=== PATIENT | male | born 1950 | race Caucasian/White ===

== ENCOUNTER 2024-10-07 08:04 | Observation (INO) | payer MEDICARE, OTHER ==
[2024-10-07 08:50] LABS: Basophils # (A) 0.03 10*3/uL (0.00-0.10); Basophils % (A) 0.2 %; HCT 42.5 % (39.6-50.0); HGB 14.8 g/dL (13.0-17.0); Lymphocytes % (A) 4.7 %; MCH 32.5 pg (27.0-32.0); MCHC 34.8 g/dL (32.0-37.0); MCV 93.4 fL (80.0-97.0); Mean Platelet Volume 12.2 fL (9.5-12.2); Monocytes # (A) 1.07 10*3/uL (0.20-1.00); Monocytes % (A) 8.4 %; Neutrophils # (A) 10.94 10*3/uL (1.80-7.70); Neutrophils % (A) 86.4 %; Platelet Count 151 10*3/uL (140-440); RBC 4.55 10*6/uL (4.40-5.60); RDW 12.3 % (11.5-14.5); WBC 12.68 10*3/uL (4.50-10.00)
[2024-10-07 09:06] LABS: ALT 35 U/L (4-49); African American GFR (CKD) >90 (>60 ml/min/1.73 sqM); Albumin 4.1 g/dL (3.5-5.0); Anion Gap 10 mmol/L; Blood Urea Nitrogen 22 mg/dL (9-20); Calcium 9.3 mg/dL (8.4-10.2); Carbon Dioxide 21 mmol/L (22-30); Chloride 107 mmol/L (98-107); Glucose 113 mg/dL (74-99); Non-African American GFR(CKD) 85 (>60 ml/min/1.73 sqM); Sodium 138 mmol/L (137-145); Total Bilirubin 1.3 mg/dL (0.2-1.3); Total Protein 7.2 g/dL (6.3-8.2)
[2024-10-07 09:13] LABS: NT-Pro-B-Type Natriuretic Pept 93 pg/mL
--- NOTE | 2024-10-07 09:28 | XR ---
EXAMINATION TYPE: XR chest 2V DATE OF EXAM: 10/07/2024 9:09 AM COMPARISON: None CLINICAL INDICATION: Male, 74 years old with history of Chest Pain; TECHNIQUE: XR chest 2V Frontal and lateral views of the chest. FINDINGS: Lungs/Pleura: Low lung volumes are present. There is no evidence of pleural effusion, focal consolida tion, or pneumothorax. Pulmonary vascularity: Unremarkable. Heart/mediastinum: Cardiomediastinal silhouette is unremarkable. Musculoskeletal: No acute osseous pathology. Other findings: None IMPRESSION: No acute cardiopulmonary disease/process. [facility], , 10/07/2024 9:26 AM
--- NOTE | 2024-10-07 09:45 | ED ---
Chest Pain HPI - General Chief Complaint: Chest Pain Stated Complaint: Chest Pain Time Seen by Provider: 10/07/24 08:09 Source: patient, EMS, RN notes reviewed Mode of arrival: EMS Limitations: no limitations - History of Present Illness Initial Comments: 74-year-old male presents emergency department chief complaint of chest pain. Patient states that started around 530 this morning he had left-sided chest comfort radiates to the right upper patient states that he does have a history of A-fib on anticoagulation denies any prior cardiac stents he believes he has a history of hypertension hyperlipidemia patient was given aspirin and nitro by EMS which seemed to alleviate his symptoms. Denies any current shortness of breath no headache or dizziness. - Related Data Home Medications Medication Instructions Recorded Confirmed Amiodarone [Cordarone] 100 mg PO DAILY 10/07/24 10/07/24 Apixaban [Eliquis] 5 mg PO BID 10/07/24 10/07/24 Hyoscyamine Sulfate [Hyoscyamine 0.375 mg PO HS@2300 10/07/24 10/07/24 Sulfate ER] Rosuvastatin Calcium 5 mg PO W/SUPPER 10/07/24 10/07/24 Allergies Allergy/AdvReac Type Severity Reaction Status Date / Time No Known Allergies Allergy Verified 10/07/24 10:58 Review of Systems ROS Statement: Those systems with pertinent positive or pertinent negative responses have been documented in the HPI. ROS Other: All systems not noted in ROS Statement are negative. EKG Findings - EKG Comments: EKG Findings:: EKG performed at 8: 40 sinus rhythm rate of 82 FL 143 QRS 94 QT/QTc 259/297 - EKG Results: EKG: interpreted by ROGERS Past Medical History Past Medical History: Atrial Fibrillation Past Surgical History: No Surgical Hx Reported General Exam Limitations: no limitations General appearance: alert, in no apparent distress Head exam: Present: atraumatic, normocephalic, normal inspection Eye exam: Present: normal appearance, PERRL, EOMI. Absent: scleral icterus, conjunctival injection, periorbital swelling ENT exam: Present: normal exam, normal oropharynx, mucous membranes moist Neck exam: Present: normal inspection, full ROM. Absent: tenderness, meningismus, lymphadenopathy Respiratory exam: Present: normal lung sounds bilaterally. Absent: respiratory distress, wheezes, rales, rhonchi, stridor Cardiovascular Exam: Present: regular rate, normal rhythm, normal heart sounds. Absent: systolic murmur, diastolic murmur, rubs, gallop, clicks Course Vital Signs 10/07/24 10/07/24 08:07 10:05 Temperature 98.3 F Pulse Rate 83 85 Respiratory 17 17 Rate Blood Pressure 93/64 118/70 O2 Sat by Pulse 95 97 Oximetry Chest Pain MDM - MDM Was pt. sent in by a medical professional or institution (, DIETER, KELLY MACHINE OPERATOR, urgent care, hospital, or retirement...) When possible be specific @ -No Did you speak to anyone other than the patient for history (EMS, parent, family, police, friend...)? What history was obtained from this source @ -No Did you review nursing and triage notes (agree or disagree)? Why? @ -I reviewed and agree with nursing and triage notes Were old charts reviewed (outside hosp., previous admission, EMS record, old EKG, old radiological studies, urgent care reports/EKG's, retirement records)? Report findings @ -No old charts were reviewed Differential Diagnosis (chest pain, altered mental status, abdominal pain women, abdominal pain men, vaginal bleeding, weakness, fever, dyspnea, syncope, headache, dizziness, GI bleed, back pain, seizure, CVA, palpatations, mental health, musculoskeletal)? @ -Differential Chest Pain: Stable Angina, Unstable Angina, STEMI, NSTEMI Aortic Dissection, Pneumothorax, Musculoskeletal, Esophageal Spasm GERD, Cholecystitis, Pancreatitis, Zoster, this is not meant to be an all-inclusive list. EKG interpreted by me (3pts min.). @ -As above X-rays interpreted by me (1pt min.). @ -Chest x-ray shows no acute cardiopulmonary process CT interpreted by me (1pt min.). @ -None done U/S interpreted by me (1pt. min.). @ -None done What testing was considered but not performed or refused? (CT, X-rays, U/S, labs)? Why? @ -None What meds were considered but not given or refused? Why? @ -None Did you discuss the management of the patient with other professionals (professionals i.e. DIETER Guajardo, KELLY MACHINE OPERATOR, lab, RT, psych nurse, social work case manager, executive administrative asst, teacher, loan workout officer, lead case manager)? Give summary @ -EM for admission Was smoking cessation discussed for >3mins.? @ -No Was critical care preformed (if so, how long)? @ -No Were there social determinants of health that impacted care today? How? (Homelessness, low income, unemployed, alcoholism, drug addiction, transportation, low edu. Level, literacy, decrease access to med. care, senior living, rehab)? @ -No Was there de-escalation of care discussed even if they declined (Discuss DNR or withdrawal of care, Hospice)? DNR status @ -No What co-morbidities impacted this encounter? (DM, HTN, Smoking, COPD, CAD, Cancer, CVA, ARF, Chemo, Hep., AIDS, mental health diagnosis, sleep apnea, morbid obesity)? @ -A-fib Was patient admitted / discharged? Hospital course, mention meds given and route, prescriptions, significant lab abnormalities, going to OR and other p ertinent info. @ -Admitted patient presented for left-sided chest pain. Patient states that did have relief of chest pain after nitro. Nitropaste was applied. Patient will be admitted for cardiac rule out including echocardiogram, cardiology evaluation Undiagnosed new problem with uncertain prognosis? @ -No Drug Therapy requiring intensive monitoring for toxicity (Heparin, Nitro, Insulin, Cardizem)? @ -No Were any procedures done? @ -No Diagnosis/symptom? @ -Chest pain Acute, or Chronic, or Acute on Chronic? @ -Acute Uncomplicated (without systemic symptoms) or Complicated (systemic symptoms)? @ -Complicated Side effects of treatment? @ -No Exacerbation, Progression, or Severe Exacerbation? @ -No Poses a threat to life or bodily function? How? (Chest pain, [place], PR, pneumonia, PE, COPD, DKA, ARF, appy, cholecystitis, CVA, Diverticulitis, Homicidal, Suicidal, threat to staff... and all critical care pts) @ -Yes risk to cardiac function Disposition Clinical Impression: Chest pain Disposition: ADMITTED IP TO THIS [facility] Condition: Fair Referrals: None,Stated [Primary Care Provider] - 1-2 days Time of Disposition: 11:12
[2024-10-07 10:01] LABS: AST 30 U/L (17-59); Alkaline Phosphatase 50 U/L (38-126); Potassium 4.6 mmol/L (3.5-5.1)
[2024-10-07] MEDS: NITROGLYCERIN OINT 1 INCH/GM PACKET TOPICAL STA (10:04)
[2024-10-07 10:35] LABS: Partial Thromboplastin Time 24.5 sec (22.0-30.0); Prothrombin Time 11.3 sec (10.0-12.5)
[2024-10-07] MEDS ORDERED: NITROGLYCERIN SL TABS 0.4 MG TAB SUBLINGUAL PRN (11:21)
[2024-10-07] MEDS: ACETAMINOPHEN TAB 325 MG TAB PO PRN (15:43)
[2024-10-07] MEDS: ATORVASTATIN 10 MG TAB PO SCH (18:15)
[2024-10-07] MEDS: AMIODARONE 100 MG TAB PO SCH (18:16)
--- NOTE | 2024-10-07 19:08 | P.HPIM ---
History of Present Illness H&P Date: 10/07/24 Chief Complaint: Chest pain Patient is a 74-year-old male with a known history of atrial fibrillation on anticoagulation with Eliquis presents to ER with complaints of chest pain. According to his at bedside patient developed chest pain mainly retrosternal chest pain radiating across the upper chest. Patient felt mild shortness of breath. Denied any nausea vomiting or diaphoresis. Denied any palpitations. No leg swelling. No cough or sputum production. Denied any recent illnesses. Patient denied any recent travel. Denied any fever at home. Denied a history of smoking. EMS was called and patient was given aspirin and nitro which seemed to improve his symptoms. No prior history of coronary stent placement. On admission EKG showed sinus rhythm. Chest x-ray showed no acute cardiopulmonary process. Laboratory data showed WBC 12.6 hemoglobin 14.8 and platelets 151, Sodium 138 potassium 4.6 chloride 107 bicarb is 21 BUN 22 creatinine 0.9 and blood sugar 113 proBNP 93, troponin x 3 negative liver enzymes are not elevated. Magnesium 2.0. Review of Systems Constitutional: Patient denies any fever or chills . No generalized weakness or weight loss. Abdomen: Patient denied nausea vomiting and diarrhea and abdominal pain. Cardiovascular: Patient complains of left sided chest pain and across the upper chest. Mild short of breath no palpitations. No leg swelling Respiratory: patient denied any cough or sputum production. No shortness of breath Neurologic: Patient denied any numbness or tingling. no headache. Musculoskeletal: Patient denies any complaints of joint swelling or deformity. Skin: Negative Psychiatric: Negative Endocrine: No heat or cold intolerance. No recent weight gain. Genitourinary: No dysuria or hematuria. All other 14 point ROS negative except the above Past Medical History Past Medical History: Atrial Fibrillation Past Surgical History: No Surgical Hx Reported Medications and Allergies Home Medications Medication Instructions Recorded Confirmed Type Amiodarone [Cordarone] 100 mg PO DAILY 10/07/24 10/07/24 History Apixaban [Eliquis] 5 mg PO BID 10/07/24 10/07/24 History Hyoscyamine Sulfate [Hyoscyamine 0.375 mg PO HS@2300 10/07/24 10/07/24 History Sulfate ER] Rosuvastatin Calcium 5 mg PO W/SUPPER 10/07/24 10/07/24 History Allergies Allergy/AdvReac Type Severity Reaction Status Date / Time No Known Allergies Allergy Verified 10/07/24 10:58 Physical Exam Vitals: Vital Signs Temp Pulse Resp BP Pulse Ox 10/07/24 10:05 85 17 118/70 97 10/07/24 08:07 98.3 F 83 17 93/64 95 Intake and Output 10/06/24 10/07/24 10/07/24 22:59 06:59 14:59 Other: Weight 68.039 kg PHYSICAL EXAMINATION: Patient is lying in the bed comfortably, no acute distress, awake alert and oriented.. HEENT: Normocephalic. Neck is supple. Pupils reactive. Nostrils clear. Oral cavity is moist. Neck reveals no JVD, carotid bruits, or thyromegaly. CHEST EXAMINATION: Trachea is central. Symmetrical expansion. Lung arevalo clear to auscultation and percussion. CARDIAC: Normal S1, S2 with no gallops. No murmurs ABDOMEN: Soft. Bowel sounds normal. No organomegaly. No abdominal bruits. Extremities: reveal no edema. No clubbing or cyanosis Neurologically awake, alert, oriented x3 with well-coordinated movements. No focal deficits noted Skin: No rash or skin lesions. Psychiatric: Coperative. Nonsuicidal Musculoskeletal: No joint swelling or deformity. Normal range of motion. Results CBC & Chem 7: 10/07/24 08:35 10/07/24 08:35 Labs: Abnormal Lab Results - Last 24 Hours (Table) 10/07/24 10/07/24 Range/Units 08:35 08:35 WBC 12.68 H (4.50-10.00) 10*3/uL MCH 32.5 H (27.0-32.0) pg Neutrophils # 10.94 H (1.80-7.70) 10*3/uL Lymphocytes # 0.60 L (0.90-5.00) 10*3/uL Monocytes # 1.07 H (0.20-1.00) 10*3/uL Eosinophils # 0.00 L (0.04-0.35) 10*3/uL Carbon Dioxide 21 L (22-30) mmol/L BUN 22 H (9-20) mg/dL Glucose 113 H (74-99) mg/dL Thrombosis Risk Factor Assmnt - DVT/VTE Prophylaxis DVT/VTE Prophylaxis: Pharmacologic Prophylaxis ordered Assessment and Plan Assessment: Atypical chest pain. Ruled out ACS. Paroxysmal atrial fibrillation on anticoagulation with Eliquis. Patient is also on amiodarone Hyperlipidemia Fever. Tmax 101.7 while in the ER. Chest x-ray showed no acute process. Follow-up Cepheid 4 Plex and urinalysis. DVT prophylaxis patient is already on full anticoagulation Plan: Patient will continue to be monitored. Serial EKG and troponin x 3 negative. C ontinue with aspirin statin and home medications including amiodarone and apixaban. Cardiology was consulted for evaluation. 2D echocardiogram was ordered. Infectious workup including Cepheid 4 Plex and UA was ordered.. Continue to follow closely. Discussed with his at bedside. Time with Patient: Greater than 30
[2024-10-07] MEDS: SODIUM CHLORIDE 0.9% 1,000 ML IV SCH (20:19)
[2024-10-07] MEDS: APIXABAN 5 MG TAB PO SCH (20:23)
[2024-10-07 20:41] LABS: Appearance,Urine Clear (Clear); Bacteria,Urine Rare /hpf; Bilirubin,Urine Negative (Negative); Blood,Urine Trace (Negative); Color,Urine Yellow; Glucose,Urine (UA) 3+ (Negative); Ketones,Urine Negative (Negative); Leukocyte Esterase,Urine Negative (Negative); Mucus,Urine Many /hpf; Nitrite,Urine Negative (Negative); PH, Urine 5.5 (5.0-8.0); Protein,Urine 1+ (Negative); RBC,Urine 1 /hpf (0-5); Specific Gravity,Urine 1.033 (1.001-1.035); WBC,Urine 2 /hpf (0-5)
[2024-10-07 21:42] LABS: Influenza A Not Detected (Not Detectd); Influenza B Not Detected (Not Detectd); RSV Not Detected (Not Detectd)
[2024-10-07] MEDS: HYOSCYAMINE SULFATE 0.375 MG TAB.ER.12H PO SCH (22:31)
[2024-10-08 08:04] LABS: HCT 37.5 % (39.6-50.0); HGB 12.1 g/dL (13.0-17.0); MCH 30.9 pg (27.0-32.0); MCHC 32.3 g/dL (32.0-37.0); MCV 95.9 FL (80.0-97.0); Mean Platelet Volume 12.4 FL (9.5-12.2); NRBC Per 100 WBC 0 X 10*3/uL (0.00-0.01); Platelet Count 139 X 10*3/uL (140-440); RBC 3.91 X 10*6/uL (4.40-5.60); RDW 12.8 % (11.5-14.5); WBC 11.22 X 10*3/uL (4.50-10.00)
--- NOTE | 2024-10-08 08:31 | CA ---
Transthoracic Echo Report Name: Bharat Davison Age: 74 Gender: M : 1950 Exam Date: 10/07/2024 16:00 Exam Location: [place] [facility] Ht (in): 66 Wt (lb): 150 Ordering Physician: Dioni Doll PAC Attending/Referring Phys: [id number], Sharmila [employer] Amy Guerrero, IVAN Procedure CPT: Indications: Chest Pain Cardiac Hx: Hx of a fib, HTN, high cholesterol Technical Quality: Very technically difficult study Contrast 1: Definity Total Dose (mL): 2 Contrast 2: Total Dose (mL): MEASUREMENTS (Male / Female) Normal Values 2D ECHO LV Diastolic Diameter PLAX 3.4 cm 4.2 - 5.9 / 3.9 - 5.3 cm LV Systolic Diameter PLAX 2.2 cm IVS Diastolic Thickness 1.0 cm 0.6 - 1.0 / 0.6 - 0.9 cm LVPW Diastolic Thickness 1.0 cm 0.6 - 1.0 / 0.6 - 0.9 cm LV Relative Wall Thickness 0.6 RV Internal Dim ED PLAX 3.3 cm LV Diastolic Volume MOD BP 32.2 cm??? 67 - 155 / 56 - 104 cm??? LV Systolic Volume MOD BP 11.6 cm??? 22 - 58 / 19 - 49 cm??? LV Ejection Fraction MOD BP 64.1 % >= 55 % LV Cardiac Index MOD BP 1131.5 cm???/min???m??? LV Diastolic Volume MOD 4C 38.7 cm??? LV Systolic Volume MOD 4C 12.4 cm??? LV Ejection Fraction MOD 4C 67.9 % LV Cardiac Index MOD 4C 1438.1 cm???/min???m??? LV Diastolic Length 4C 6.8 cm LV Systolic Length 4C 5.4 cm LV Diastolic Volume MOD 2C 23.8 cm??? LV Systolic Volume MOD 2C 11.1 cm??? LV Ejection Fraction MOD 2C 53.3 % LV Cardiac Index MOD 2C 695.7 cm???/min???m??? LV Diastolic Length 2C 6.0 cm LV Systolic Length 2C 5.4 cm LA Volume 50.1 cm??? 18 - 58 / 22 - 52 cm??? LA Volume Index 28.0 cm???/m??? 16 - 28 cm???/m??? M-MODE Aortic Root Diameter MM 3.0 cm DOPPLER AV Peak Velocity 139.6 cm/s AV Peak Gradient 7.8 mmHg MV Area PHT 2.9 cm??? Mitral E Point Velocity 69.1 cm/s Mitral A Point Velocity 85.2 cm/s Mitral E to A Ratio 0.8 MV Deceleration Time 262.6 ms TR Peak Velocity 297.2 cm/s TR Peak Gradient 35.3 mmHg Right Ventricular Systolic Press 39.6 mmHg FINDINGS Left Ventricle Left ventricular ejection fraction is estimated at 55-60 %. Small left ventricular cavity. Left ventricular wall thickness normal. No obvious regional wall motion abnormalities. Right Ventricle Mild right ventricular dilatation. Mild pulmonary hypertension. Right Atrium Right atrium not well visualized. Left Atrium Normal left atrial size. No left atrial thrombus or mass present. Mitral Valve Mitral valve not well visualized. No mitral stenosis, regurgitation or prolapse. Aortic Valve Aortic valve not well visualized. No aortic stenosis. Trace to mild aortic regurgitation. Tricuspid Valve Structurally normal tricuspid valve. Mild tricuspid regurgitation. Pulmonic Valve Pulmonic valve not well visualized. Pericardium No pericardial effusion. Aorta Normal size aortic root and proximal ascending aorta. CONCLUSIONS Normal LV size preserved systolic function ejection fraction of 55%, patient is slightly tachycardic. Minimal mitral and tricuspid regurgitation. No significant pulmonary hypertension. No pericardial effusion Previewed by: Dr. Anastasia Whitaker MD (Electronically Signed) Final Date: 08 Oct 2024 08:30
[2024-10-08 08:36] LABS: BUN/Creat Ratio 22.91 Ratio (12.00-20.00); Blood Urea Nitrogen 25.2 mg/dL (9.0-27.0); Calcium 8.3 mg/dL (8.7-10.3); Carbon Dioxide 19.9 mmol/L (21.6-31.8); Chloride 106 mmol/L (96-109); Chol/HDL Ratio 2.09 Ratio; Glucose 108 mg/dL (70-110); LDL Cholesterol,Calculated 31.6 mg/dL (0.0-131.0); Potassium 4.3 mmol/L (3.5-5.5); Sodium 137 mmol/L (135-145); VLDL Calculation 8.48 mg/dL (5.00-40.00)
[2024-10-08 08:42] VITALS: BP 105/63; PULSE 80; RESP 21; TEMP 98.8
[2024-10-08 09:12] LABS: Basophils # (A) 0.04 X 10*3/uL (0.00-0.10); Basophils % (A) 0.4 %; Eosinophils # (A) 0 X 10*3/uL (0.04-0.35); Eosinophils % (A) 0 %; Lymphocytes # (A) 1.41 X 10*3/uL (0.90-5.00); Lymphocytes % (A) 12.6 %; Monocytes # (A) 1.59 X 10*3/uL (0.20-1.00); Monocytes % (A) 14.2 %; Neutrophils # (A) 8.14 X 10*3/uL (1.80-7.70); Neutrophils % (A) 72.4 %
[2024-10-08] MEDS: METOPROLOL SUCCINATE (ER) 25 MG TAB.ER.24H PO SCH (10:05)
[2024-10-08] MEDS: ASPIRIN 325 MG TAB PO SCH (10:05)
--- NOTE | 2024-10-08 17:54 | P.CRDCN ---
History of Present Illness Consult date: 10/08/24 History of present illness: - . HPI: [This is a 74-year-old gentleman with a known history of hyperlipidemia and paroxysmal atrial fibrillation who sees Dr. Dominguez in the office and takes apixaban and amiodarone but no beta-blockers. He came to the hospital with a feeling of palpitations and had a sharp feeling in the left lateral chest then like a pressure that lasted a few seconds on and off. Quality of pain is atypical troponins are normal EKG revealed a sinus mechanism with nonspecific ST-T changes. His echo revealed normal systolic function. He has no symptoms to suggest angina while here while ambulating also he has no symptoms. Quality of pain is atypical is stress test according to the patient a few months ago was normal.]. RELEVANT PAST MEDICAL HISTORY: [Paroxysmal atrial fibrillation, maintaining sinus rhythm now, hypercholesterolemia. No documented evidence of CAD]. MEDICATIONS: [Amiodarone rosuvastatin and Eliquis] ALLERGIES: [No known drug allergies]. REVIEW OF SYSTEMS: []. PHYSICIAL EXAM: [Vitals are stable no JVD S1-S2 heard normally. No significant murmurs lungs reveal bilateral decent air entry abdomen is soft nontender. Lower extremities reveal normal pulses no edema Central nervous system is normal. EKG revealed sinus mechanism nonspecific ST-T changes]. IMPRESSION: 1. [Atypical chest pain with normal troponins and recent negative stress test]. 2. [Paroxysmal atrial fibrillation currently in sinus rhythm]. 3. [Hypercholesterolemia]. 4. []. 5. []. RECOMMENDATIONS: [I would recommend that we increase activity add metoprolol succinate 25 mg daily and if he has no further symptoms he can be discharged and follow-up with Dr. Dominguez in the office in 1 week. I will review the stress test from the office as well.]. Past Medical History Past Medical History: Atrial Fibrillation History of Any Multi-Drug Resistant Organisms: None Reported Past Surgical History: No Surgical Hx Reported Smoking Status: Never smoker Medications and Allergies Home Medications Medication Instructions Recorded Confirmed Type Amiodarone [Cordarone] 100 mg PO DAILY 10/07/24 10/07/24 History Apixaban [Eliquis] 5 mg PO BID 10/07/24 10/07/24 History Hyoscyamine Sulfate [Hyoscyamine 0.375 mg PO HS@2300 10/07/24 10/07/24 History Sulfate ER] Rosuvastatin Calcium 5 mg PO W/SUPPER 10/07/24 10/07/24 History Acetaminophen Tab [Tylenol] 650 mg PO Q6HR PRN tab 10/08/24 Rx Aspirin 81 mg PO DAILY #30 tab 10/08/24 Rx Metoprolol Succinate (ER) [Toprol 25 mg PO DAILY #30 tab 10/08/24 Rx XL] Nitroglycerin Sl Tabs [Nitrostat] 0.4 mg SUBLINGUAL Q5M PRN #20 tab 10/08/24 Rx Allergies Allergy/AdvReac Type Severity Reaction Status Date / Time No Known Allergies Allergy Verified 10/07/24 10:58 Physical Exam Vitals: Vital Signs Temp Pulse Resp BP BP Pulse Ox 10/08/24 11:58 94 L 10/08/24 11:21 95 10/08/24 07:00 98.8 F 80 21 105/63 96 10/08/24 00:46 98.1 F 72 18 103/64 95 10/07/24 18:45 98.1 F 81 20 96/63 94 L Intake and Output 10/08/24 10/08/24 10/08/24 06:59 14:59 22:59 Intake Total 300 Balance 300 Intake: Intake, IV Titration 300 Amount Sodium Chloride 0.9% 1, 300 000 ml @ 75 mls/hr IV . [id number] [facility] Rx#:[id number] Other: # Voids 1 Results 10/08/24 04:17 10/08/24 04:17 Lipids 10/08/24 Range/Units 04:17 Triglycerides 42.40 (0.00-149.00) mg/dL Cholesterol 77.00 (0.00-200.00) mg/dL HDL Cholesterol 36.90 L (40.00-60.00) mg/dL Cholesterol/HDL Ratio 2.09 Ratio CBC 10/08/24 Range/Units 04:17 WBC 11.22 H (4.50-10.00) X 10*3/uL RBC 3.91 L (4.40-5.60) X 10*6/uL Hgb 12.1 L (13.0-17.0) g/dL Hct 37.5 L (39.6-50.0) % Plt Count 139 L (140-440) X 10*3/uL Comprehensive Metabolic Panel 10/08/24 Range/Units 04:17 Sodium 137 (135-145) mmol/L Potassium 4.3 (3.5-5.5) mmol/L Chloride 106 (96-109) mmol/L Carbon Dioxide 19.9 L (21.6-31.8) mmol/L BUN 25.2 (9.0-27.0) mg/dL Creatinine 1.1 (0.6-1.5) mg/dL Glucose 108 (70-110) mg/dL Calcium 8.3 L (8.7-10.3) mg/dL Intake and Output 10/08/24 10/08/24 10/08/24 06:59 14:59 22:59 Intake Total 300 Balance 300 Intake: Intake, IV Titration 300 Amount Sodium Chloride 0.9% 1, 300 000 ml @ 75 mls/hr IV . [id number] [facility] Rx#:[id number] Other: # Voids 1 10/08/24 04:17 10/08/24 04:17
--- NOTE | 2024-10-14 22:56 | P.DS ---
Providers Date of admission: 10/07/24 13:06 Expected date of discharge: 10/08/24 Attending physician: Faisal Multani Consults: 10/07/24 11:21 Consult Physician Urgent Consulting Provider: Marko No Consult Reason/Comments: chest pain Do you want consulting provider notified?: Yes Primary care physician: Ernesto Arteaga Hospital Course: Final diagnosis Atypical chest pain. Ruled out ACS. Paroxysmal atrial fibrillation on anticoagulation with Eliquis. Patient is also on amiodarone Hyperlipidemia Fever. Tmax 101.7 while in the ER. Chest x-ray showed no acute process. C OVID, RSV, influenza negative DVT prophylaxis patient is already on full anticoagulation GI prophylaxis Full code Discharge disposition Patient is being discharged in a stable condition with guarded prognosis to home. Patient will follow-up with Dr. Arteaga in the outpatient setting upon discharge. Patient is to continue with current cardiac medications and outpatient follow-up with cardiology in 1 week as scheduled. Total time taken is greater than 35 minutes. Hospital course This is a 74-year-old male who was recently admitted with chest pain being closely monitored by cardiology. Ruled out ACS. 2D echo was ordered we reviewed by cardiology and has been cleared for discharge. Patient will need close outpatient follow-up in 1 week at the cardiology clinic. Patient having no further fevers and virology testing has been negative. Patient reports to feeling improved and would like to go home. Please refer to consultation notes for further HPI. Patient also instructed to follow-up primary care provider this week. Currently no reports of chest pain, shortness of breath, or palpitations. Patient is afebrile. No reports of nausea or vomiting and patient is tolerating diet. Patient will be discharged home today. Guarded prognosis Physical exam: Gen: This is a 74-year-old male who is awake, alert and oriented x 3, well- developed, elderly appearing, thin built, blind HEENT: Head is atraumatic, normocephalic. Pupils equal, round. Sclerae is anicteric. NECK: Supple. No JVD. No lymphadenopathy. No thyromegaly. LUNGS: Diminished breath sounds bilaterally otherwise clear to auscultation. No wheezes or rhonchi. No intercostal retractions. HEART: S1, S2 are muffled ABDOMEN: Soft. Thin bowel sounds are present. No masses. No tenderness. EXTREMITIES: No pedal edema. No calf tenderness. NEUROLOGICAL: Patient is awake, alert and oriented x3. Cranial nerves 2 through 12 are grossly intact. Please refer to medication reconciliation sheet for a list of medications. The impression and plan of care has been dictated by Maribeth Cerda, Nurse Practitioner as directed. Dr. Nerissa MD I have performed a history and examination and MDM of this patient, discussed the same with the dictator, and agree with the dictator's assessment and plan as written ,documented as a scribe. Based on total visit time, I have performed more than 50% of the visit. Patient Condition at Discharge: Fair Plan - Discharge Summary Discharge Rx Participant: No New Discharge Prescriptions: New Aspirin 81 mg PO DAILY #30 tab Nitroglycerin Sl Tabs [Nitrostat] 0.4 mg SUBLINGUAL Q5M PRN #20 tab PRN Reason: Chest Pain Acetaminophen Tab [Tylenol] 650 mg PO Q6HR PRN tab PRN Reason: Fever And/ Or Pain Metoprolol Succinate (ER) [Toprol XL] 25 mg PO DAILY #30 tab Continue Apixaban [Eliquis] 5 mg PO BID Amiodarone [Cordarone] 100 mg PO DAILY Hyoscyamine Sulfate [Hyoscyamine Sulfate ER] 0.375 mg PO HS@2300 Rosuvastatin Calcium 5 mg PO W/SUPPER Discharge Medication List Amiodarone [Cordarone] 100 mg PO DAILY 10/07/24 [History] Apixaban [Eliquis] 5 mg PO BID 10/07/24 [History] Hyoscyamine Sulfate [Hyoscyamine Sulfate ER] 0.375 mg PO HS@2300 10/07/24 [History] Rosuvastatin Calcium 5 mg PO W/SUPPER 10/07/24 [History] Acetaminophen Tab [Tylenol] 650 mg PO Q6HR PRN tab 10/08/24 [Rx] Aspirin 81 mg PO DAILY #30 tab 10/08/24 [Rx] Metoprolol Succinate (ER) [Toprol XL] 25 mg PO DAILY #30 tab 10/08/24 [Rx] Nitroglycerin Sl Tabs [Nitrostat] 0.4 mg SUBLINGUAL Q5M PRN #20 tab 10/08/24 [Rx] Follow up Appointment(s)/Referral(s): Haseeb Dominguez MD [STAFF PHYSICIAN] - 1 Week (office to call for appointment ) Ernesto Arteaga MD [Primary Care Provider] - 1 Week Patient Instructions/Handouts: Chest Pain (DC) Activity/Diet/Wound Care/Special Instructions: Activity limited until follow-up Follow-up with primary care provider Follow-up with cardiology outpatient Continue taking medications as prescribed Discharge Disposition: HOME SELF-CARE
== END 2024-10-08 15:23 | disposition home or self-care (01) ==
LOC: EC 08:04 → 6NMEDSUR 13:06
PROVIDERS: ADMIT Internal Medicine; ATTEND Internal Medicine
DX: R07.89 Other chest pain (principal); I48.0 Paroxysmal atrial fibrillation; I10 Essential (primary) hypertension; E78.00 Pure hypercholesterolemia, unspecified; R50.9 Fever, unspecified; Z79.01 Long term (current) use of anticoagulants; Z79.899 Other long term (current) drug therapy
CPT/HCPCS: 99285; 36415; 94760; 93005; 83880; 80061; 80053; 80048; 83735; 84484; 85025 ×2; 85610; 85730; 81001; 87636; 71046; G0378 ×2; C8929; Q9957; 93306

== ENCOUNTER 2024-11-02 16:54 | Observation (INO) | payer MEDICARE, OTHER ==
--- NOTE | 2024-11-02 17:40 | ED ---
Chest Pain HPI - General Source: patient, RN notes reviewed Mode of arrival: ambulatory Limitations: physical limitation <Marybeth Thompson - Last Filed: 11/02/24 17:39> - General Source: patient, RN notes reviewed, old records reviewed Mode of arrival: ambulatory Limitations: physical limitation - History of Present Illness MD Complaint: chest pain, other (Fever and shortness of breath) -: days(s) Severity: moderate Severity scale (1-10): 7 Consistency: constant Improves With: nothing Worsens With: nothing Context: recent illness Anginal Symptoms: sense of impending doom Other Symptoms: palpitations Treatments Prior to Arrival: none <David Zabala - Last Filed: 11/07/24 16:58> - General Chief Complaint: Chest Pain Stated Complaint: Chest pain Time Seen by Provider: 11/02/24 17:39 - History of Present Illness Initial Comments: Quick note: 74-year-old male presented the ER for evaluation of chest pain. He states it started yesterday around 5 PM and did resolve by the morning. He states it returned around 3 PM today. He states he was listening to the radio when this started. reports fevers last night. She also states patient has felt dizzy and short of breath. (Marybeth Thompson) This is a 74 male to the ER with family member, presents with his sister for evaluation of chest pain and shortness of breath. Patient states he saw his PCP 1 week ago was given antibiotics for pneumonia. Patient did take all antibiotics but is still had persistent fevers and chest pain mainly last night into today (David Zabala) - Related Data Home Medications Medication Instructions Recorded Confirmed Amiodarone [Cordarone] 100 mg PO DAILY 10/07/24 11/03/24 Apixaban [Eliquis] 5 mg PO BID-W/MEALS 10/07/24 11/03/24 Hyoscyamine Sulfate [Hyoscyamine 0.375 mg PO HS@2300 10/07/24 11/03/24 Sulfate ER] Rosuvastatin Calcium 5 mg PO W/SUPPER 10/07/24 11/03/24 Aspirin EC [Ecotrin Low Dose] 81 mg PO W/SUPPER 11/03/24 11/03/24 Previous Rx's Medication Instructions Recorded Metoprolol Succinate (ER) [Toprol 25 mg PO DAILY #30 tab 10/08/24 XL] Nitroglycerin Sl Tabs [Nitrostat] 0.4 mg SUBLINGUAL Q5M PRN #20 tab 10/08/24 Allergies Allergy/AdvReac Type Severity Reaction Status Date / Time No Known Allergies Allergy Verified 11/03/24 09:11 Review of Systems ROS Other: All systems not noted in ROS Statement are negative. <Marybeth Thompson - Last Filed: 11/02/24 17:39> ROS Other: All systems not noted in ROS Statement are negative. <David Zabala - Last Filed: 11/07/24 16:58> ROS Statement: Those systems with pertinent positive or pertinent negative responses have been documented in the HPI. EKG Findings - EKG Comments: EKG Findings:: EKG is sinus 72 TN 147 QRS 90 QTc 419 - EKG Results: EKG: interpreted by ERMLonnie (EKG is sinus bradycardia 56 TN 131 QRS 89 QTc 470) <David Zabala - Last Filed: 11/07/24 16:58> Past Medical History Past Medical History: Atrial Fibrillation, Hyperlipidemia Additional Past Medical History / Comment(s): legally blind History of Any Multi-Drug Resistant Organisms: None Reported Past Surgical History: No Surgical Hx Reported Past Psychological History: No Psychological Hx Reported Smoking Status: Never smoker <Marybeth Thompson - Last Filed: 11/02/24 17:39> General Exam Limitations: physical limitation <Marybeth Thompson - Last Filed: 11/02/24 17:39> General appearance: alert, in no apparent distress Head exam: Present: atraumatic, normocephalic, normal inspection Eye exam: Present: normal appearance, PERRL, EOMI. Absent: scleral icterus, conjunctival injection, periorbital swelling ENT exam: Present: normal exam, mucous membranes moist Neck exam: Present: normal inspection. Absent: tenderness, meningismus, lymphadenopathy Respiratory exam: Present: normal lung sounds bilaterally. Absent: respiratory distress, wheezes, rales, rhonchi, stridor Cardiovascular Exam: Present: regular rate, normal rhythm, normal heart sounds. Absent: systolic murmur, diastolic murmur, rubs, gallop, clicks GI/Abdominal exam: Present: soft, normal bowel sounds. Absent: distended, ten derness, guarding, rebound, rigid Extremities exam: Present: normal inspection, full ROM, normal capillary refill. Absent: tenderness, pedal edema, joint swelling, calf tenderness Back exam: Present: normal inspection Neurological exam: Present: alert, oriented X3, CN II-XII intact Psychiatric exam: Present: normal affect, normal mood Skin exam: Present: warm, dry, intact, normal color. Absent: rash <David Zabala - Last Filed: 11/07/24 16:58> - General Exam Comments Initial Comments: Visual Physical Exam Vital signs reviewed General: Well-appearing, nontoxic, no acute distress. Head: Normocephalic, atraumatic ENT: Airway patent Chest: Nonlabored breathing Skin: No visual rash, normal skin tone Neuro: Alert and oriented 3 Musculoskeletal: No gross abnormalities (Marybeth Thompson) Course <David Zabala José Filed: 11/07/24 16:58> Vital Signs 11/02/24 11/02/24 11/02/24 17:00 19:14 19:42 Temperature 100.1 F H Pulse Rate 75 67 68 Pulse Rate [ Silverware Assembler ] Respiratory 16 18 20 Rate Blood Pressure 104/63 72/34 121/73 Blood Pressure [Right Arm] O2 Sat by Pulse 97 96 97 Oximetry 11/02/24 11/02/24 11/02/24 21:08 21:59 22:02 Temperature 98.5 F Pulse Rate 64 59 L Pulse Rate [ Silverware Assembler ] Respiratory 18 17 Rate Blood Pressure 102/63 Blood Pressure [Right Arm] O2 Sat by Pulse Oximetry 11/03/24 11/03/24 11/03/24 00:00 05:13 08:00 Temperature 98.5 F Pulse Rate 54 L 54 L Pulse Rate [ 59 L Silverware Assembler ] Respiratory 17 18 19 Rate Blood Pressure 107/63 95/52 Blood Pressure 89/63 [Right Arm] O2 Sat by Pulse 95 100 96 Oximetry 11/03/24 11/03/24 11/03/24 12:00 12:47 18:00 Temperature 98.0 F 99.4 F Pulse Rate 71 Pulse Rate [ 62 Silverware Assembler ] Respiratory 18 16 Rate Blood Pressure 110/71 Blood Pressure 114/62 [Right Arm] O2 Sat by Pulse 95 99 100 Oximetry 11/03/24 11/03/24 20:28 21:30 Temperature Pulse Rate 66 64 Pulse Rate [ Silverware Assembler ] Respiratory 16 16 Rate Blood Pressure 125/74 114/66 Blood Pressure [Right Arm] O2 Sat by Pulse 99 97 Oximetry - Reevaluation(s) Reevaluation #1: 11/02/24 20:22 Medical records reviewed (David Zabala) Reevaluation #2: 11/02/24 20:22 Patient symptoms relatively unchanged here in the ER still short of breath with chest pain (David Zabala) Reevaluation #3: 11/02/24 20:22 Patient informed of results and questions answered (David Zabala) Reevaluation #4: Was pt. sent in by a medical professional or institution ([facility], SOCIAL WORK LECTURER, urgent care, hospital, or [facility]...) When possible be specific @ -no Did you speak to anyone other than the patient for history (EMS, parent, family, police, friend...)? What history was obtained from this source @ -no Did you review nursing and triage notes (agree or disagree)? Why? @ -agree Are old charts reviewed (outside hosp., previous admission, EMS record, old EKG, old radiological studies, urgent care reports/EKG's, [facility] records)? Report findings @ -yes Differential Diagnosis (chest pain, altered mental status, abdominal pain women, abdominal pain men, vaginal bleeding, weakness, fever, dyspnea, syncope, headache, dizziness, GI bleed, back pain, seizure, CVA, palpatations, mental health, musculoskeletal)? @ -prior EKG interpreted by me (3pts min.). @ -yes X-rays interpreted by me (1pt min.). @ -yes positive for pneumonia CT interpreted by me (1pt min.). @ -no U/S interpreted by me (1pt. min.). @ -no What testing was considered but not performed or refused? (CT, X-rays, U/S, labs)? Why? @ -none What meds were considered but not given or refused? Why? @ -none Did you discuss the management of the patient with other professionals (professionals i.e. DIETER Gu[facility]ardo, SOCIAL WORK LECTURER, lab, RT, psych nurse, social services specialist, family partner, teacher, home school liaison officer, flight control manager)? Give summary @ -no Was smoking cessation discussed for >3mins.? @ -no Was critical care preformed (if so, how long)? @ -no Were there social determinants of health that impacted care today? How? (Homelessness, low income, unemployed, alcoholism, drug addiction, transportation, low edu. Level, literacy, decrease access to med. care, usp, rehab)? @ -none Was there de-escalation of care discussed even if they declined (Discuss DNR or withdrawal of care, Hospice)? DNR status @ -no What co-morbidities impacted this encounter? (DM, HTN, Smoking, COPD, CAD, Cancer, CVA, ARF, Chemo, Hep., AIDS, mental health diagnosis, sleep apnea, morbid obesity)? @ -none Was patient admitted / discharged? Hospital course, mention meds given and route, prescriptions, significant lab abnormalities, going to OR and other pertinent info. @ - 74 male who presents to the ER with chest pain today. Patient found to have fever here in the ER pneumonia on x-ray will admit for IV antibiotics fever control symptom management chest pain observation Admitted Undiagnosed new problem with uncertain prognosis? @ -no Drug Therapy requiring intensive monitoring for toxicity (Heparin, Nitro, Insulin, Cardizem)? @ -no Were any procedures done? @ -no Diagnosis/symptom? @ -Chest pain, fever, pneumonia Acute, or Chronic, or Acute on Chronic? @ -Acute Uncomplicated (without systemic symptoms) or Complicated (systemic symptoms)? @ -Complicated Side effects of treatment? @ -no Exacerbation, Progression, or Severe Exacerbation? @ -exacerbation Poses a threat to life or bodily function? How? (Chest pain, USA, ID, pneumonia, PE, COPD, DKA, ARF, appy, cholecystitis, CVA, Diverticulitis, Homicidal, Suicidal, threat to staff... and all critical care pts) @ -yes with chest pain (David Zabala) Reevaluation #5: Differential Chest Pain: Stable Angina, Unstable Angina, STEMI, NSTEMI Aortic Dissection, Pneumothorax, Musculoskeletal, Esophageal Spasm GERD, Cholecystitis, Pancreatitis, Zoster, this is not meant to be an all-inclusive list. Differential Fever: Pneumonia, viral URI, endocarditis, myocarditis, pericarditis, otitis, sinu sitis, peritonsillar Abscess, retropharyngeal Abscess, epiglottitis, peritonitis, appendicitis, Saranya cystitis, diverticulitis, hepatitis, colitis, UTI, PID, TOA, pyelonephritis, prostatitis, epididymitis, meningitis, encephalitis, pulmonary embolism, CVA, thyroid storm, pancreatitis, adrenal crisis, cavernous sinus thrombosis, this is not meant to be an all-inclusive list. (David Zabala) - Consultations Consultation #1: Spoke with sound who agrees to admit this patient (David Zabala) Chest Pain MDM <Marybeth Thompson - Last Filed: 11/02/24 17:39> <David Zabala - Last Filed: 11/07/24 16:58> - MDM I performed the quick note portion of this chart. Electronically signed by Marybeth Thompson PA-C (Marybeth Thompson) 74 male who presents to the ER with chest pain today. Patient found to have fe viki here in the ER pneumonia on x-ray will admit for IV antibiotics fever control symptom management chest pain observation (David Zabala) Disposition <Marybeth Thompson - Last Filed: 11/02/24 17:39> Is patient prescribed a controlled substance at d/c from ED?: No Time of Disposition: 20:20 <David Zabala - Last Filed: 11/07/24 16:58> Clinical Impression: Chest pain, Fever, Pneumonia Disposition: ADMITTED IP TO THIS HOSP Condition: Stable
--- NOTE | 2024-11-02 18:23 | XR ---
EXAMINATION TYPE: XR chest 2V DATE OF EXAM: 11/02/2024 5:59 PM COMPARISON: 10/07/2024 CLINICAL INDICATION: Male, 74 years old with history of fever/cp, TECHNIQUE: XR chest 2V view(s) obtained. FINDINGS: The heart size is normal. The pulmonary vasculature is normal. Mild left lower lobe infiltrate is present. Minimal effusion is not excluded. IMPRESSION: 1. Mild left lower lobe infiltrate and left pleural effusion. Correlate for atelectasis and pneumonia . Follow-up is recommended. [facility], , 11/02/2024 6:20 PM
[2024-11-02 20:14] LABS: Basophils # (A) 0.03 10*3/uL (0.00-0.10); Basophils % (A) 0.2 %; HCT 39.3 % (39.6-50.0); HGB 12.9 g/dL (13.0-17.0); Lymphocytes # (A) 1.38 10*3/uL (0.90-5.00); Lymphocytes % (A) 8.5 %; MCH 31.1 pg (27.0-32.0); MCHC 32.8 g/dL (32.0-37.0); MCV 94.7 fL (80.0-97.0); Mean Platelet Volume 11.4 fL (9.5-12.2); Monocytes # (A) 1.33 10*3/uL (0.20-1.00); Monocytes % (A) 8.1 %; Neutrophils % (A) 82.6 %; Platelet Count 214 10*3/uL (140-440); RBC 4.15 10*6/uL (4.40-5.60); RDW 13.9 % (11.5-14.5); WBC 16.33 10*3/uL (4.50-10.00)
[2024-11-02] MEDS ORDERED: PNEUMONIA PROTOCOL UTILIZED 1 EACH MISC PO PRN (20:16)
[2024-11-02] MEDS ORDERED: IPRATROPIUM-ALBUTEROL 3 ML NEB INHALATION PRN (20:16)
[2024-11-02 20:26] LABS: INR 1.2 (<1.2); Prothrombin Time 12.5 sec (10.0-12.5)
[2024-11-02 20:31] LABS: ALT 28 U/L (4-49); AST 23 U/L (17-59); African American GFR (CKD) 86 (>60 ml/min/1.73 sqM); Albumin 3.9 g/dL (3.5-5.0); Alkaline Phosphatase 59 U/L (38-126); Anion Gap 12 mmol/L; Blood Urea Nitrogen 28 mg/dL (9-20); Calcium 9.1 mg/dL (8.4-10.2); Carbon Dioxide 21 mmol/L (22-30); Chloride 104 mmol/L (98-107); Glucose 105 mg/dL (74-99); Magnesium 2.1 mg/dL (1.6-2.3); Non-African American GFR(CKD) 74 (>60 ml/min/1.73 sqM); Potassium 4.1 mmol/L (3.5-5.1); Sodium 137 mmol/L (137-145); Total Bilirubin 1.2 mg/dL (0.2-1.3); Total Protein 6.7 g/dL (6.3-8.2)
[2024-11-02] MEDS: LACTATED RINGERS 1,000 ML IV SCH (20:38)
[2024-11-02] MEDS: ACETAMINOPHEN TAB 500 MG TAB PO STA (20:39)
[2024-11-02] MEDS: IBUPROFEN 800 MG TAB PO STA (20:40)
[2024-11-02] MEDS: KETOROLAC 15 MG/ML 1 ML VIAL IVP STA (20:40)
[2024-11-02 20:45] LABS: Influenza A Not Detected (Not Detectd); Influenza B Not Detected (Not Detectd); RSV Not Detected (Not Detectd)
[2024-11-02] MEDS: PIPERACILLIN-TAZOBACTAM 3.375 GM in SODIUM CHLORIDE 0.9% 100 ML IVPB STA (21:07)
[2024-11-02] MEDS: LEVOFLOXACIN 750MG-D5W PMX 750 MG in DEXTROSE/WATER 1 150ML.BAG IVPB STA (21:57)
[2024-11-02] MEDS ORDERED: NITROGLYCERIN SL TABS 0.4 MG TAB SUBLINGUAL PRN (23:09)
[2024-11-02] MEDS: ASPIRIN 81 MG PO SCH (23:27)
[2024-11-02] MEDS: ATORVASTATIN 40 MG TAB PO SCH (23:27)
[2024-11-02] MEDS: APIXABAN 5 MG TAB PO SCH (23:27)
[2024-11-02] MEDS ORDERED: ACETAMINOPHEN TAB 325 MG TAB PO PRN (23:37)
--- NOTE | 2024-11-02 23:40 | P.HPIM ---
History of Present Illness H&P Date: 11/02/24 History of present illness; 74-year-old man with PMH of atrial fibrillation maintained on Eliquis 5 mg twice daily and amiodarone 100 mg daily (follows with Dr. Dominguez) and hyperlipidemia presents to the Emergency Department with complaints of chest pain that began yesterday. Patient states he took 3 nitroglycerin tabs yesterday that helped with the pain and additional 3 nitroglycerin tabs today however noted minimal relief. He states that the pain is sharp/stabbing in sensation, started in the mid left chest with some radiation to the central chest/sternal area. Patient states he was recently diagnosed with pneumonia, and has endorsed having some intermittent fevers recently. Labratory review: - WBC 16.33, hemoglobin 12.9, hematocrit 39.3, platelet 214; sodium 137, potassium 4.1, bicarb 21, BUN 28, creatinine 1.01, lactic acid 1.2, calcium 9.1, magnesium 2.1, total bilirubin 1.2, AST 23, ALT 28, alkaline phosphatase 59 - Troponin <0.012 - Respiratory viral panel all negative Imaging: - Chest x-ray done in the ER showed mild the left lower lobe infiltrate and left pleural effusion - Initial EKG done in the ER independently read and interpreted showed heart rate 72, sinus rhythm; QTc 419 - Repeat EKG done in the ER independently read and interpreted showed heart rate of 56, sinus bradycardia, no ST segment elevation or depression seen, no T-wave inversions seen; QTc 417 Vitals: - On arrival: Temperature 100.1 F, blood pressure 104/63, heart rate 75, respiratory rate 16, SpO2 97% on room air - Most recently temperature 98.5 F, blood pressure 102/63, heart rate 59, respiratory rate 17, SpO2 97% on room air Patient admitted to internal medicine service REVIEW OF SYSTEMS: Pertinent positives and negatives noted in HPI. The rest of the 14-point review of systems is negative. Physical Exam: General: nontoxic, no distress, appears at stated age; patient is blind Derm: warm, dry, intact Head: atraumatic, normocephalic, symmetric Eyes: EOMI, anicteric sclera Mouth: no lip lesion, mucus membranes moist Cardiovascular: S1 S2 reg, no murmur, rubs, or gallops Lungs: CTA bilateral, no rales, no accessory muscle use Abdominal: soft, non-tender to palpataion, no appreciable organomegaly Extremities: no gross muscle atrophy, no edema, no contractures Neuro: Alert, Oriented, CNII-XII grossly intact, gait normal Psych: well appearing, appropriate affect Assessment and plan 74-year-old man with PMH of atrial fibrillation maintained on Eliquis 5 mg twice daily and hyperlipidemia presents to the Emergency Department with complaints of chest pain that began yesterday. #Sepsis, no clear source , possibly secondary to pneumonia possibly failing outpatient treatment - Completed outpatient treatment, however unable to recall which antibiotics he had used - WBC 16.33, temp 100.1 F on arrival (has been having intermittent fevers at home per the patient)... patient recently received steroids as outpatient - Received 1 dose of Levaquin and Zosyn in the ED; continue with Zosyn 3.375 g every 8 hours - Will receive 2 L of LR boluses in the ED - Procalcitonin, blood culture, sputum culture, Legionella antigen ordered, currently pending follow up urinalysis acute respiratory viral panel is negative for COVID , Flu and RSV #Atypical chest pain r/o ACS - Trend troponins: Initial troponin <0.012 - Initial EKG done in the ER independently read and interpreted showed heart rate 72, sinus rhythm; QTc 419 - Repeat EKG done in the ER independently read and interpreted showed heart rate of 56, sinus bradycardia, no ST segment elevation or depression seen, no T-wave inversions seen; QTc 417 - Continue with nitroglycerin as needed for pain - Continue with aspirin 81 mg daily - Continue with Lipitor 40 mg nightly - Cardiac monitoring - Supplemental oxygen as needed - Heart healthy diet - Consider consulting cardiology - Was recently hospitalized for similar sensation, following discharge was given an event monitor to wear, however has not followed up with cardiology since wearing the event monitor - Most recent echocardiogram from 10/07/2024 showed EF 55-60% with minimal mitral and tricuspid regurgitation GI prophylaxis: None DVT prophylaxis: Eliquis 5 mg twice daily The patient is admitted with an anticipated more than than 2 midnight stay for evaluation of sepsis pneumonia and atypical chest pain. CODE STATUS: Full code Discussed with: Patient and his sister Anticipated discharge place: Pending clinical course Dictation was produced using [employer] software. please excuse any grammatical, word or spelling errors. Caio Burns MD PGY-1 IM I have seen and evaluated the patient today. I Discussed the case with the resident and agree with the resident's findings I edited the assessment and plan as necessary as documented in the resident's note. Past Medical History Past Medical History: Atrial Fibrillation, Hyperlipidemia Additional Past Medical History / Comment(s): legally blind History of Any Multi-Drug Resistant Organisms: None Reported Past Surgical History: No Surgical Hx Reported Past Psychological History: No Psychological Hx Reported Smoking Status: Never smoker Medications and Allergies Home Medications Medication Instructions Recorded Confirmed Type Amiodarone [Cordarone] 100 mg PO DAILY 10/07/24 10/07/24 History Apixaban [Eliquis] 5 mg PO BID 10/07/24 10/07/24 History Hyoscyamine Sulfate [Hyoscyamine 0.375 mg PO HS@2300 10/07/24 10/07/24 History Sulfate ER] Rosuvastatin Calcium 5 mg PO W/SUPPER 10/07/24 10/07/24 History Acetaminophen Tab [Tylenol] 650 mg PO Q6HR PRN tab 10/08/24 Rx Aspirin 81 mg PO DAILY #30 tab 10/08/24 Rx Metoprolol Succinate (ER) [Toprol 25 mg PO DAILY #30 tab 10/08/24 Rx XL] Nitroglycerin Sl Tabs [Nitrostat] 0.4 mg SUBLINGUAL Q5M PRN #20 tab 10/08/24 Rx Allergies Allergy/AdvReac Type Severity Reaction Status Date / Time No Known Allergies Allergy Verified 11/02/24 17:05 Physical Exam Vitals: Vital Signs Temp Pulse Resp BP Pulse Ox 11/02/24 22:02 98.5 F 11/02/24 21:59 59 L 17 102/63 11/02/24 21:08 64 18 11/02/24 19:42 68 20 121/73 97 11/02/24 19:14 67 18 72/34 96 11/02/24 17:00 100.1 F H 75 16 104/63 97 Intake and Output 11/02/24 11/02/24 11/02/24 06:59 14:59 22:59 Other: Weight 68.039 kg Results CBC & Chem 7: 11/02/24 19:35 11/02/24 19:35 Labs: Abnormal Lab Results - Last 24 Hours (Table) 11/02/24 11/02/24 11/02/24 Range/Units 19:35 19:35 19:35 WBC 16.33 H (4.50-10.00) 10*3/uL RBC 4.15 L (4.40-5.60) 10*6/uL Hgb 12.9 L (13.0-17.0) g/dL Hct 39.3 L (39.6-50.0) % Immature Gran # 0.09 H (0.00-0.04) 10*3/uL Neutrophils # 13.50 H (1.80-7.70) 10*3/uL Monocytes # 1.33 H (0.20-1.00) 10*3/uL Eosinophils # 0.00 L (0.04-0.35) 10*3/uL INR 1.2 H (<1.2) Carbon Dioxide 21 L (22-30) mmol/L BUN 28 H (9-20) mg/dL Glucose 105 H (74-99) mg/dL
[2024-11-03] MEDS: PIPERACILLIN-TAZOBACTAM 3.375 GM in SODIUM CHLORIDE 0.9% 100 ML IVPB SCH (05:15)
[2024-11-03 06:37] LABS: Basophils # (A) 0.02 10*3/uL (0.00-0.10); Basophils % (A) 0.2 %; Eosinophils # (A) 0.02 10*3/uL (0.04-0.35); Eosinophils % (A) 0.2 %; HCT 32.8 % (39.6-50.0); HGB 10.6 g/dL (13.0-17.0); Lymphocytes # (A) 0.89 10*3/uL (0.90-5.00); Lymphocytes % (A) 10.1 %; MCHC 32.3 g/dL (32.0-37.0); MCV 95.9 fL (80.0-97.0); Mean Platelet Volume 10.9 fL (9.5-12.2); Monocytes # (A) 1.05 10*3/uL (0.20-1.00); Monocytes % (A) 11.9 %; Neutrophils # (A) 6.83 10*3/uL (1.80-7.70); Neutrophils % (A) 77.1 %; Platelet Count 173 10*3/uL (140-440); RBC 3.42 10*6/uL (4.40-5.60); WBC 8.85 10*3/uL (4.50-10.00)
[2024-11-03 06:59] LABS: African American GFR (CKD) >90 (>60 ml/min/1.73 sqM); Anion Gap 9 mmol/L; Blood Urea Nitrogen 22 mg/dL (9-20); Calcium 8.6 mg/dL (8.4-10.2); Carbon Dioxide 24 mmol/L (22-30); Chloride 104 mmol/L (98-107); Glucose 87 mg/dL (74-99); Non-African American GFR(CKD) 87 (>60 ml/min/1.73 sqM); Potassium 3.9 mmol/L (3.5-5.1); Sodium 137 mmol/L (137-145)
--- NOTE | 2024-11-03 07:37 | XR ---
EXAMINATION TYPE: XR chest 1V portable DATE OF EXAM: 11/03/2024 4:19 AM COMPARISON: 11/02/2024 CLINICAL INDICATION: Male, 74 years old with history of pneumonia, TECHNIQUE: XR chest 1V portable view(s) obtained. FINDINGS: The heart size is large. The pulmonary vasculature is normal. The lungs are clear. IMPRESSION: 1. Cardiomegaly [facility], , 11/03/2024 7:35 AM
[2024-11-03] MEDS: LACTATED RINGERS 1,000 ML IV SCH (11:04)
--- NOTE | 2024-11-03 15:06 | P.PN ---
Subjective Progress Note Date: 11/03/24 Hospital course: Patient is a pleasant 74-year-old male with a past medical history of atrial fibrillation on anticoagulation with Eliquis, hyperlipidemia, and legally blind. He presented to our facility with a chief complaint of chest pain on 11/02/2024. Patient follows with applied research director, Dr. Dominguez and PCP Dr. Benitez. Patient recently treated outpatient with course of Augmentin for community-acquired pneumonia. Upon arrival to our facility,, patient underwent evaluation in the emergency department. Vital signs upon arrival show blood pressure 104/63, heart rate 75, respiratory rate 16, temp 100.1 F, and SpO2 of 97% on room air. Shortly after arrival patient became hypotensive with blood pressure decreasing to 72/34 and heart rate of 67. EKG was completed showing sinus mechanism at 72 bpm with T wave abnormalities in inferior leads II, III, and aVF. Chest x-ray completed showing cardiomegaly but negative for acute cardiopulmonary process. Labs completed and reviewed. CBC showing leukocytosis with WBC count of 16.33 and normocytic anemia with hemoglobin of 12.9. Differential positive for immature granulocytes of 0.09, neutrophils of 13.50, monocytes of 1.33. Coagulation profile showing elevated INR of 1.2. BMP showing hypocarbia with bicarb of 21 and elevated anion gap of 12 with prerenal azotemia with BUN of 28, creatinine of 1.01, and GFR of 74. Blood glucose was 105. Lactic acid was 1.2. Magnesium 2.1. Calcium 9.1. Liver profile unremarkable. Troponin was negative at less than 0.012. Influenza A, influenza B, RSV, and COVID PCR nega tive. Procalcitonin drawn and pending results. Patient was given sepsis bolus of 2 L lactated Ringer's and started on IV antibiotics with Zosyn 3.375 g every 8 hours. Patient admitted under services with consultation to cardiology. Cepheid 4 Plex viral panel negative for influenza A, influenza B, RSV, and COVID PCR. Physical exam: Patient was seen and fully evaluated at bedside. He was resting comfortably and denies any complaints at this time. Patient does report intermittent chest pain and cough. Denies sputum production with cough. He currently denies shortness of breath at rest. Vital signs reviewed and stable. General: Nontoxic, no distress and appears stated age. Derm: Skin warm and dry, normal coloration for ethnicity. Head: Atraumatic, normocephalic and symmetric. Eyes: Patient's eyes closed throughout examination, patient is blind Mouth: no lip lesions, mucus membranes moist Cardiovascular: regular rate and rhythm with normal S1S2, no murmur, positive posterior tibial pulses bilaterally, and cap refill < 2 seconds. Lungs: Respirations even, regular, and unlabored on room air. Lungs slightly diminished at bases otherwise clear to auscultation bilaterally with no rhonchi, no rales, no wheezing, and no accessory muscle usage. Abdominal: soft, nontender to palpation, no guarding, no appreciable organomegaly Ext: ROM intact. No gross muscle atrophy, no edema, no contractures Neuro: Speech clear, face symmetrical and CN II-XII grossly intact with no noted focal neuro deficits. Psych: Alert and oriented. Appropriate and pleasant affect. Assessment and Plan of Care: Chest pain, rule out acute coronary event SIRS on arrival with leukocytosis, pyrexia, and hypotension. Unclear source possibly recently diagnosed pneumonia Hypotension, resolved after IV fluid bolus Leukocytosis, resolved -Cardiology consulted, appreciate recommendations -Telemetry monitoring -Trend troponins -Follow-up on blood culture, urinalysis, urine Legionella and urine culture results. -Follow-up on procalcitonin results -Continue IV antibiotics with Zosyn 3.375 g every 8 hours pending further workup. -Aspirin 81 mg daily, atorvastatin 40 mg nightly, Eliquis 5 mg twice daily, amiodarone 100 mg daily, metoprolol 25 mg daily. -Echocardiogram recently completed on 10/07/2024 was reviewed and revealed a preserved EF of 55 to 60% with mild right ventricular dilation and mild pulmonary hypertension otherwise no significant valvular or structural abnormalities reported. - Repeat troponin and morning chest x-ray Paroxysmal atrial fibrillation, currently maintaining sinus mechanism - Continue daily medication regimen with Eliquis 5 mg twice daily, amiodarone 100 mg daily, metoprolol 25 mg daily Hyperlipidemia -Continue atorvastatin 40 mg nightly. Legally blind -Provide safe and supportive care with assistance as needed. -Maintain fall precautions. Data and imaging reviewed: --Echocardiogram recently completed on 10/07/2024 was reviewed and revealed a preserved EF of 55 to 60% with mild right ventricular dilation and mild pulmonary hypertension otherwise no significant valvular or structural abnormalities reported. - Chest x-ray showing cardiomegaly but negative for acute cardiopulmonary process upon personal review. -Morning labs reviewed. CBC showing resolution of previously noted leukocytosis with WBC count decreasing from 16.33 down to 8.85 and hemoglobin decreasing from 12.9 down to 10.6, likely secondary to dilution from IV fluid boluses received no signs of bleeding noted. BMP unremarkable with exception of mild prerenal azotemia with BUN of 22, creatinine of 0.86, GFR of 87. -Labs reviewed. Blood pressure 114/62, heart rate 62,, respiratory rate 18, temp 98.0 F, and SpO2 of 95% on room air. CODE STATUS: Full code DVT prophylaxis Eliquis Discussed with: Patient, patient's at bedside, and RN Anticipated discharge date: Pending clinical course Anticipated discharge place: Pending clinical course Patient was seen independently by Nurse Pracitioner. This document was prepared using [employer] dictation software. Please allow for errors in petroleum engineering professor, while rare they do occur. Primitivo Tracy NP rendered care for this patient independently, reviewed the findings and plan as documented in the note above and agree with plan. I did not physically speak with or examine the patient on this date. Objective - Vital Signs Vital signs: Vital Signs Temp 98.5 F 11/02/24 22:02 Pulse 54 L 11/03/24 05:13 Resp 18 11/03/24 05:13 BP 95/52 11/03/24 05:13 Pulse Ox 100 11/03/24 05:13 FiO2 Intake & Output 11/02/24 11/03/24 11/03/24 18:59 06:59 18:59 Weight 68.039 kg - Labs CBC & Chem 7: 11/03/24 06:04 11/03/24 06:04 Labs: Abnormal Lab Results - Last 24 Hours (Table) 11/02/24 11/02/24 11/02/24 Range/Units 19:35 19:35 19:35 WBC 16.33 H (4.50-10.00) 10*3/uL RBC 4.15 L (4.40-5.60) 10*6/uL Hgb 12.9 L (13.0-17.0) g/dL Hct 39.3 L (39.6-50.0) % Immature Gran # 0.09 H (0.00-0.04) 10*3/uL Neutrophils # 13.50 H (1.80-7.70) 10*3/uL Lymphocytes # (0.90-5.00) 10*3/uL Monocytes # 1.33 H (0.20-1.00) 10*3/uL Eosinophils # 0.00 L (0.04-0.35) 10*3/uL INR 1.2 H (<1.2) Carbon Dioxide 21 L (22-30) mmol/L BUN 28 H (9-20) mg/dL Glucose 105 H (74-99) mg/dL 11/03/24 11/03/24 Range/Units 06:04 06:04 WBC (4.50-10.00) 10*3/uL RBC 3.42 L (4.40-5.60) 10*6/uL Hgb 10.6 L (13.0-17.0) g/dL Hct 32.8 L (39.6-50.0) % Immature Gran # (0.00-0.04) 10*3/uL Neutrophils # (1.80-7.70) 10*3/uL Lymphocytes # 0.89 L (0.90-5.00) 10*3/uL Monocytes # 1.05 H (0.20-1.00) 10*3/uL Eosinophils # 0.02 L (0.04-0.35) 10*3/uL INR (<1.2) Carbon Dioxide (22-30) mmol/L BUN 22 H (9-20) mg/dL Glucose (74-99) mg/dL
[2024-11-03] MEDS: METOPROLOL SUCCINATE (ER) 25 MG TAB.ER.24H PO SCH (15:55)
[2024-11-03] MEDS: AMIODARONE 100 MG TAB PO SCH (15:56)
[2024-11-03 20:52] LABS: Appearance,Urine Clear (Clear); Bilirubin,Urine Negative (Negative); Blood,Urine Negative (Negative); Color,Urine Light Yellow; Glucose,Urine (UA) Negative (Negative); Ketones,Urine Negative (Negative); Leukocyte Esterase,Urine Negative (Negative); Nitrite,Urine Negative (Negative); PH, Urine 7.5 (5.0-8.0); Protein,Urine Trace (Negative); Specific Gravity,Urine 1.015 (1.001-1.035)
--- NOTE | 2024-11-04 07:07 | XR ---
EXAMINATION TYPE: XR chest 1V portable DATE OF EXAM: 11/04/2024 6:48 AM COMPARISON: None. CLINICAL INDICATION: Male, 74 years old with history of follow up on recently diagnosed pneumonia, TECHNIQUE: XR chest 1V portable view(s) obtained. FINDINGS: The heart size is normal. The pulmonary vasculature is normal. Minimal right pleural effusion is present. IMPRESSION: 1. Minimal right pleural effusion [facility], , 11/04/2024 7:05 AM
[2024-11-04 07:56] VITALS: PULSE 64
--- NOTE | 2024-11-04 12:29 | P.CRDCN ---
History of Present Illness History of present illness: HISTORY OF PRESENT ILLNESS: This is a 74-year-old male with a past medical history significant for atrial fibrillation and hyperlipidemia. Patient follows in the office with Dr. Dominguez. We have been asked to see the patient in consultation for chest pain. Patient examined at the bedside. Patient states he was having pain throughout his chest yesterday. He states it was mostly on the left side. He denied any radiation of the pain. Patient states the pain only lasted for a few minutes and then went away. He denies any chest pain or pressure at the time of examination. Vital signs are stable. DIAGNOSTICS: - EKG reveals sinus mechanism with nonspecific ST-T wave changes. - Chest xray cardiomegaly. - Laboratory data: WBC 8.85. Hemoglobin 10.6. Platelet count 173. Sodium 137. Potassium 3.9. BUN 22. Creatinine 0.86. Troponin negative x 3. Procalcitonin 0.20. - Current home cardiac medications include amiodarone 100 mg daily, Eliquis 5 mg twice a day, rosuvastatin 5 mg with dinner, metoprolol succinate 25 mg daily, hyoscyamine 0.375 mg at night, aspirin 81 mg with dinner. - Most recent echocardiogram obtained in September 2024 revealed ejection fraction 55 to 60%, mild pulmonary hypertension, trace to mild aortic regurgitation, mild tricuspid regurgitation - Patient underwent Lexiscan stress test in April 2024 which was negative for ischemia - Cardiac catheterization history: Unknown REVIEW OF SYSTEMS: At the time of my exam: CONSTITUTIONAL: Denies fever or chills. HEENT: Denies blurred vision, vision changes, or eye pain. Denies hemoptysis CARDIOVASCULAR: Denies chest pain. Denies orthopnea. Denies PND. Denies palpitations RESPIRATORY: Denies shortness of breath. GASTROINTESTINAL: Denies abdominal pain. Denies nausea or vomiting. HEMATOLOGIC: Denies bleeding disorders. GENITOURINARY: Denies any blood in urine. SKIN: Denies pruitis. Denies rash. PHYSICAL EXAM: VITAL SIGNS: Reviewed. GENERAL: Well-developed in no acute distress. HEENT: Head is normocephalic. Pupils are equal, round. Sclerae anicteric. Mucous membranes of the mouth are moist. Neck supple. No JVD or thyromegaly LUNGS: Respirations even and unlabored. Lungs essentially clear to auscultation bilaterally. HEART: Regular rate and rhythm. S1 and S2 heard. ABDOMEN: Soft. Nondistended. Nontender. EXTREMITIES: Normal range of motion. No clubbing or cyanosis. Peripheral pul ses intact. No lower extremity edema NEUROLOGIC: Awake and alert. Oriented x 3. ASSESSMENT: Chest pain, troponin negative x 3 Paroxysmal atrial fibrillation Hyperlipidemia Nighttime bradycardia, on hyoscyamine outpatient at night PLAN: An acute coronary event has been ruled out No need to repeat echocardiogram as this was performed in September 2024 Resume home cardiac medications No plans for stress testing or cardiac catheterization at this time Patient may be discharged home today from a cardiac standpoint We will sign off. Please reconsult if needed. Nurse practitioner note has been reviewed by physician. Signing provider agrees with the documented findings, assessment, and plan of care documented by BAND EDGER as a scribe. Past Medical History Past Medical History: Atrial Fibrillation, Hyperlipidemia Additional Past Medical History / Comment(s): legally blind History of Any Multi-Drug Resistant Organisms: None Reported Past Surgical History: No Surgical Hx Reported Past Psychological History: No Psychological Hx Reported Smoking Status: Never smoker Medications and Allergies Home Medications Medication Instructions Recorded Confirmed Type Amiodarone [Cordarone] 100 mg PO DAILY 10/07/24 11/03/24 History Apixaban [Eliquis] 5 mg PO BID-W/MEALS 10/07/24 11/03/24 History Hyoscyamine Sulfate [Hyoscyamine 0.375 mg PO HS@2300 10/07/24 11/03/24 History Sulfate ER] Rosuvastatin Calcium 5 mg PO W/SUPPER 10/07/24 11/03/24 History Metoprolol Succinate (ER) [Toprol 25 mg PO DAILY #30 tab 10/08/24 11/03/24 Rx XL] Nitroglycerin Sl Tabs [Nitrostat] 0.4 mg SUBLINGUAL Q5M PRN #20 tab 10/08/24 11/03/24 Rx Aspirin EC [Ecotrin Low Dose] 81 mg PO W/SUPPER 11/03/24 11/03/24 History Allergies Allergy/AdvReac Type Severity Reaction Status Date / Time No Known Allergies Allergy Verified 11/03/24 09:11 Physical Exam Vitals: Vital Signs Temp Pulse Pulse Pulse Resp BP BP 11/04/24 08:46 11/04/24 07:55 98.5 F 64 16 117/72 11/04/24 04:00 98.0 F 59 L 18 11/04/24 01:03 18 11/03/24 23:00 98.2 F 64 18 11/03/24 22:41 16 11/03/24 21:30 64 16 114/66 11/03/24 20:28 66 16 125/74 11/03/24 18:00 99.4 F 71 16 110/71 11/03/24 12:47 BP Pulse Ox 11/04/24 08:46 96 11/04/24 07:55 97 11/04/24 04:00 113/61 96 11/04/24 01:03 11/03/24 23:00 104/60 95 11/03/24 22:41 11/03/24 21:30 97 11/03/24 20:28 99 11/03/24 18:00 100 11/03/24 12:47 99 Intake and Output 11/03/24 11/04/24 11/04/24 22:59 06:59 14:59 Intake Total 0 Balance 0 Intake: Oral 0 Other: # Voids 1 Weight 68.039 kg 70 kg Results 11/03/24 06:04 11/03/24 06:04 Cardiac Enzymes 11/03/24 11/03/24 Range/Units 14:33 17:49 Troponin I <0.012 <0.012 (0.000-0.034) ng/mL Current Medications Generic Name Dose Route Start Last Admin Trade Name Freq PRN Reason Stop Dose Admin Acetaminophen 650 mg 11/02/24 23:37 Acetaminophen Tab 325 Mg Tab PO Q6HR PRN Fever and/ or Pain Albuterol/Ipratropium 3 ml 11/02/24 20:16 Ipratropium-Albuterol 3 Ml Neb INHALATION RT-Q4H PRN shortness of breath Amiodarone HCl 100 mg 11/03/24 15:00 11/04/24 09:26 Amiodarone 100 Mg Tab PO 100 mg DAILY QUINN Administration Apixaban 5 mg 11/02/24 23:15 11/04/24 09:26 Apixaban 5 Mg Tab PO 5 mg BID QUINN Administration Protocol Aspirin 81 mg 11/02/24 23:15 11/04/24 09:26 Aspirin 81 Mg PO 81 mg DAILY QUINN Administration Atorvastatin Calcium 40 mg 11/02/24 23:15 11/03/24 20:26 Atorvastatin 40 Mg Tab PO 40 mg HS QUINN Administration Piperacillin Sod/Tazobactam 100 mls @ 25 mls/hr 11/03/24 04:00 11/04/24 12:02 Sod 3.375 gm/ Sodium Chloride IVPB 25 mls/hr Q8H QUINN Administration Protocol Lactated Ringer's 1,000 mls @ 75 mls/hr 11/03/24 07:00 11/04/24 12:02 Lactated Ringers IV 75 mls/hr .[id number] QUINN Administration Metoprolol Succinate 25 mg 11/03/24 15:00 11/04/24 09:26 Metoprolol Succinate (Er) 25 Mg Tab.Er.24h PO 25 mg DAILY QUINN Administration Miscellaneous Information 1 each 11/02/24 20:16 Pneumonia Protocol Utilized 1 Each Misc PO ONCE PRN Per Protocol Nitroglycerin 0.4 mg 11/02/24 23:09 Nitroglycerin Sl Tabs 0.4 Mg Tab SUBLINGUAL Q5M PRN Chest Pain Intake and Output 11/03/24 11/04/24 11/04/24 22:59 06:59 14:59 Intake Total 0 Balance 0 Intake: Oral 0 Other: # Voids 1 Weight 68.039 kg 70 kg 11/03/24 06:04 11/03/24 06:04
--- NOTE | 2024-11-04 13:19 | P.DS ---
Providers Date of admission: 11/02/24 20:21 Expected date of discharge: 11/04/24 Attending physician: Elizabeth Garcia MD Consults: 11/03/24 14:27 Consult Physician Routine Consulting Provider: Erin Knight Consult Reason/Comments: CP Do you want consulting provider notified?: Yes, Notify in am Primary care physician: Ernesto Arteaga Hospital Course: Discharge Diagnosis: Chest pain, ACS ruled out Hypotension, resolved High anion gap metabolic acidosis Leukocytosis Normocytic anemia A-fib on Eliquis Dyslipidemia Legally blind Hospital Course: Patient is a pleasant 74-year-old male with a past medical history of atrial fibrillation on anticoagulation with Eliquis, hyperlipidemia, and legally blind. He presented to our facility with a chief complaint of chest pain on 11/02/2024. Patient follows with construction flagger, Dr. Dominguez and PCP Dr. Elliott. Patient recently treated outpatient with course of Augmentin for community-acquired pneumonia. Upon arrival to our facility,, patient underwent evaluation in the emergency department. Vital signs upon arrival show blood pressure 104/63, heart rate 75, respiratory rate 16, temp 100.1 F, and SpO2 of 97% on room air. Shortly after arrival patient became hypotensive with blood pressure decreasing to 72/34 and heart rate of 67. EKG was completed showing sinus mechanism at 72 bpm with T wave abnormalities in inferior leads II, III, and aVF. Chest x-ray completed showing cardiomegaly but negative for acute cardiopulmonary process. Labs completed and reviewed. CBC showing leukocytosis with WBC count of 16.33 and normocytic anemia with hemoglobin of 12.9. Differential positive for immature granulocytes of 0.09, neutrophils of 13.50, monocytes of 1.33. Coagulation profile showing elevated INR of 1.2. BMP showing hypocarbia with bicarb of 21 and elevated anion gap of 12 with prerenal azotemia with BUN of 28, creatinine of 1.01, and GFR of 74. Blood glucose was 105. Lactic acid was 1.2. Magnesium 2.1. Calcium 9.1. Liver profile unremarkable. Troponin was negative at less than 0.012. Influenza A, influenza B, RSV, and COVID PCR negative. Procalcitonin drawn and negative. Patient was given bolus of 2 L lactated Ringer's and started on IV antibiotics with Zosyn 3.375 g every 8 hours. Patient admitted under services with consultation to cardiology. Cepheid 4 Plex viral panel negative for influenza A, influenza B, RSV, and COVID PCR. WBC count normalized. Troponin negative x 3. Patient remains on room air. Repeat chest x-ray shows small right pleural effusion with no correlation with his chest pain. Denies any significant shortness of breath or cough. Patient being discharged home with close follow-up with PCP. Patient seen and examined at bedside. Vital signs reviewed and stable. General: Nontoxic, no distress, appears at stated age Derm: Warm, dry Head: Atraumatic, normocephalic, symmetric Eyes: Eyes closed Mouth: No lip lesion, mucus membranes moist Cardiovascular: S1S2 reg, no murmur Lungs: CTA bilateral, no rhonchi, no rales, no accessory muscle use Abdominal: Soft, nontender to palpation, no guarding, no appreciable organomegaly Ext: No gross muscle atrophy, no edema, no contractures Neuro: CN II-XI grossly intact, no focal neuro deficits Psych: Alert, oriented, appropriate affect A total of 36 minutes of time were spent preparing this complex discharge summary. Patient was discharged on 11/04/2024 at 1315. Patient Condition at Discharge: Stable Plan - Discharge Summary Discharge Rx Participant: No New Discharge Prescriptions: Continue Apixaban [Eliquis] 5 mg PO BID-W/MEALS Amiodarone [Cordarone] 100 mg PO DAILY Nitroglycerin Sl Tabs [Nitrostat] 0.4 mg SUBLINGUAL Q5M PRN #20 tab PRN Reason: Chest Pain Aspirin EC [Ecotrin Low Dose] 81 mg PO W/SUPPER Hyoscyamine Sulfate [Hyoscyamine Sulfate ER] 0.375 mg PO HS@2300 Rosuvastatin Calcium 5 mg PO W/SUPPER Metoprolol Succinate (ER) [Toprol XL] 25 mg PO DAILY #30 tab Discharge Medication List Amiodarone [Cordarone] 100 mg PO DAILY 10/07/24 [History] Apixaban [Eliquis] 5 mg PO BID-W/MEALS 10/07/24 [History] Hyoscyamine Sulfate [Hyoscyamine Sulfate ER] 0.375 mg PO HS@2300 10/07/24 [History] Rosuvastatin Calcium 5 mg PO W/SUPPER 10/07/24 [History] Metoprolol Succinate (ER) [Toprol XL] 25 mg PO DAILY #30 tab 10/08/24 [Rx] Nitroglycerin Sl Tabs [Nitrostat] 0.4 mg SUBLINGUAL Q5M PRN #20 tab 10/08/24 [Rx] Aspirin EC [Ecotrin Low Dose] 81 mg PO W/SUPPER 11/03/24 [History] Follow up Appointment(s)/Referral(s): Ernesto Arteaga MD [Primary Care Provider] - 1-2 days Patient Instructions/Handouts: Noncardiac Chest Pain (DC) Discharge Disposition: HOME SELF-CARE
[2024-11-04 13:29] VITALS: BP 149/80; RESP 18; TEMP 97.5
[2024-11-04] MEDS ORDERED: HYOSCYAMINE SULFATE 0.375 MG TAB.ER.12H PO SCH (23:00)
== END 2024-11-04 15:35 | disposition home or self-care (01) ==
LOC: EC 16:54 → 3SCARD 20:21
PROVIDERS: ADMIT Internal Medicine; ATTEND Internal Medicine
DX: R07.9 Chest pain, unspecified (principal); A41.9 Sepsis, unspecified organism; J18.9 Pneumonia, unspecified organism; I95.9 Hypotension, unspecified; E87.20 Acidosis, unspecified; E78.5 Hyperlipidemia, unspecified; I48.0 Paroxysmal atrial fibrillation; R00.1 Bradycardia, unspecified; H54.8 Legal blindness, as defined in USA; D64.9 Anemia, unspecified; Z79.01 Long term (current) use of anticoagulants; Z79.82 Long term (current) use of aspirin; Z79.899 Other long term (current) drug therapy
CPT/HCPCS: 96366 ×3; 96368; 96365; 96375; 99285; 36415; 94760; 80053; 80048; 87449; 83605; 83735; 84484 ×2; 85025 ×2; 85610; 85730; 81003; 87040; 84145; 87636; 71045 ×2; 71046; G0378 ×3; J2543 ×3; J1956; J1885

== ENCOUNTER → 2024-12-02 | Outpatient (CLI) | payer MEDICARE, OTHER ==
[2024-12-02 20:03] LABS: Basophils # (A) 0.04 X 10*3/uL (0.00-0.10); Basophils % (A) 0.4 %; Eosinophils # (A) 0.12 X 10*3/uL (0.04-0.35); Eosinophils % (A) 1.2 %; HCT 37.8 % (39.6-50.0); HGB 11.7 g/dL (13.0-17.0); Immature Grans, Automated 0.50 %; Lymphocytes # (A) 1.48 X 10*3/uL (0.90-5.00); Lymphocytes % (A) 15.4 %; MCH 29.8 pg (27.0-32.0); MCHC 31.0 g/dL (32.0-37.0); MCV 96.2 FL (80.0-97.0); Monocytes # (A) 1.04 X 10*3/uL (0.20-1.00); Monocytes % (A) 10.8 %; NRBC Per 100 WBC 0 X 10*3/uL (0.00-0.01); Neutrophils # (A) 6.89 X 10*3/uL (1.80-7.70); Neutrophils % (A) 71.7 %; Platelet Count 270 X 10*3/uL (140-440); RBC 3.93 X 10*6/uL (4.40-5.60); RDW 14.0 % (11.5-14.5); WBC 9.62 X 10*3/uL (4.50-10.00)
[2024-12-02 20:05] LABS: Hepatitis A Antibody IgM Nonreactive (Nonreactive); Hepatitis B Surface Antigen Nonreactive (Nonreactive); Hepatitis C IgG Antibody Nonreactive (Nonreactive)
== END | disposition home or self-care (01) ==
LOC: LABWHC1 12:14
PROVIDERS: ATTEND Physician Assistant Medical
DX: D72.829 Elevated white blood cell count, unspecified (principal); R50.9 Fever, unspecified
CPT/HCPCS: 36415; 80074; 85025; 87040

== ENCOUNTER → 2024-12-14 | Day surgery (SDC) | payer MEDICARE, OTHER ==
[~2024-12-14] MED LIST: ALPRAZolam 0.25 MG TAB PO PRN; ALPRAZolam 0.5 MG TAB PO PRN; ASPIRIN 325 MG TAB PO STA; NITROGLYCERIN SL TABS 0.4 MG TAB SUBLINGUAL PRN; SODIUM CHLORIDE 0.9% 1,000 ML in EMPTY BAG 1 BAG IV SCH
[2024-12-14 09:27] VITALS: RESP 14; TEMP 98.2
[2024-12-14] MEDS: IV FLUID CONTINUATION 1,000 ML IV ONE (09:30)
[2024-12-14] MEDS: HEPARIN SODIUM,PORCINE 10,000 UNIT in SODIUM CHLORIDE 0.9% 1,000 ML IRRIGATION PRN (10:13)
[2024-12-14] MEDS: HEPARIN SODIUM,PORCINE (1 ML) 2,500 UNIT in SODIUM CHLORIDE 0.9% 250 ML IRRIGATION PRN (10:13)
[2024-12-14] MEDS: fentaNYL (PF) 50 MCG/1 ML VIAL IVP ONE (10:32)
[2024-12-14] MEDS: MIDAZOLAM 2 MG/2 ML VIAL IVP ONE (10:32)
[2024-12-14 10:33] LABS: African American GFR (CKD) 67 (>60 ml/min/1.73 sqM); Anion Gap 10 mmol/L; Blood Urea Nitrogen 20 mg/dL (9-20); Calcium 9.7 mg/dL (8.4-10.2); Carbon Dioxide 23 mmol/L (22-30); Chloride 107 mmol/L (98-107); Glucose 81 mg/dL (74-99); Non-African American GFR(CKD) 58 (>60 ml/min/1.73 sqM); Potassium 4.2 mmol/L (3.5-5.1); Sodium 140 mmol/L (137-145)
[2024-12-14] MEDS: LIDOCAINE 1% INJ 10MG/ML (20 ML MDV) SQ ONE (10:34)
[2024-12-14] MEDS: VERAPAMIL SYRINGE (5 MG/10 ML) INTRAARTER ONE (10:37)
[2024-12-14] MEDS: HEPARIN SODIUM 1,000 UN/ML (10ML VL) IVP ONE (10:39)
[2024-12-14] MEDS: IOPAMIDOL-370 100ML BTL INJ ONE (10:48)
[2024-12-14 17:05] VITALS: BP 120/61; PULSE 55
--- NOTE | 2024-12-15 18:43 | P.CARDCATH ---
Date of Procedure: 12/14/24 Description of Procedure: DIAGNOSTIC CORONARY ANGIOGRAPHY and LEFT HEART CATH REPORT PROCEDURES PERFORMED: Left heart catheterization Selective coronary angiography Moderate conscious sedation 20 mins [Ultrasound assisted] Right radial access INDICATION: Typical angina, refractory to medical management CONSENT: I have explained the procedural steps of above-mentioned procedures in layman's terms to the patient. I discussed the risks (including but not limited to stroke, emergent vascular or cardiac surgery or ), benefits and alternative therapies for the above-mentioned procedure. I discussed the risks of sedation/analgesia and blood product administration (if indicated). The patient has indicated understanding and acceptance of these risks. Conscious Sedation: Patient's ECG, heart rate, blood pressure, pulse oximetry were monitored throughout the duration of procedure under my direct supervision. 1 mg Versed and 50 mcg Fentanyl were used for induction of moderate conscious sedation. Total duration of moderate concious sedation 20 minutes. PROCEDURAL DETAILS: Patient was prepped and draped in sterile fashion. 1% lidocaine was infiltrated over the right radial artery. Right radial access was obtained via modified seldinger technique. [Ultrasound was used for radial access]. Medications: 5mg of verapamil was administed in the radial sheet. 4000 Units of Heparin was administed once the catheter reached the aortic root Wires and Catheter used: J wire was advanced under fluroscopy to get to aortic root. 5 khmer JR 4 diagnostic catheter was utilized obtain left ventricular pressure and pressure gradint across aortic valve. 5 khmer JR 4 diagnostic catheter was used to selectively engage the right coronary ostium. 5 khmer JL 3.5 diagnostic catheter was utilized to selectively engage the left coronary ostium. Angiographic images were reviewed in detail. Catheter and wire were removed. Radial sheet was flushed. The right radial sheath was removed and a TR band was placed. Patent hemostasis was achieved. The patient tolerated the procedure well. Patient was transported back to the post catheterization holding area in stable condition. TECHNICAL DETAILS Total contrast used: Isovue [60 ml] Complications: [none] Estimated Blood loss: less than 15 ml HEMODYNAMICS: Aortic Pressure: 110/60 mmHg. LV pressure: 112/2 mmHg. LVEDP 8 mmHg. There was no significant gradient across the aortic valve. SELECTIVE CORONARY ARTERIOGRAPHY: LEFT MAIN: The left main is short and large caliber vessel. It bifurcates into the LAD and circumflex. Left main appears angiographically normal. LEFT ANTERIOR DESCENDING CORONARY ARTERY: LAD is a large-caliber vessel and wraps around the apex. LAD appears angiographically patent. It gives rise to a medium size diagonal 1 branch which appears angiographically patent. LEFT CIRCUMFLEX CORONARY ARTERY: It is nondominant vessel. LCx is moderate caliber vessel. Proximal LCx is patent. Mid LCx gives rise to a medium caliber AV groove branch and a branch which appears angiographically patent. RIGHT CORONARY ARTERY: Dominant vessel. RCA is large caliber and appears angiographically patent. Distally it bifurcates into PDA and PL branch which are moderate caliber vessel and appears angiographically patent. IMPRESSION: Angiographically patent coronary arteries Normal LVEDP PLAN: Aggressive risk factor modification per most recent ACC/AHA guidelines. 125 cc fluids for 4 hours Discharge home in 4 hours Follow-up in the office in 1-[address] Dominguez Performing Physician Freddy Yung MD, FACC, RPVI Thank you for allowing [facility] to participate in this patient's care. Feel free to reach out in case of any followup questions.
== END ==
LOC: CATHCVL 08:42
PROVIDERS: ATTEND Student in an Organized Health Care Education/Training Program
DX: I25.118 Atherosclerotic heart disease of native coronary artery with other forms of angina pectoris (principal); I48.0 Paroxysmal atrial fibrillation; I10 Essential (primary) hypertension; D50.0 Iron deficiency anemia secondary to blood loss (chronic); Z79.01 Long term (current) use of anticoagulants; Z79.899 Other long term (current) drug therapy
CPT/HCPCS: 93458; 80048; 99152; C1769 ×2; C1894; J2250; J1644 ×3; J2003; Q9967; J3010